=== PATIENT | female | born 1980 | race Caucasian/White ===

== ENCOUNTER 2018-08-25 06:29 | Inpatient (IN) ==
[2018-08-25] MEDS ORDERED: SODIUM CHLORIDE 0.9% 1,000 ML IV STA (06:46)
[2018-08-25] MEDS ORDERED: ONDANSETRON 4 MG/2 ML VIAL IV STA (06:46)
[2018-08-25 07:33] LABS: Basophils % 0.4 % (0.0-0.8); Eosinophils % 0.4 % (0.00-10.9); Hemoglobin 12.4 GM/DL (12.0-16.0); Immature Granulocytes % 0.5 %; Immature Granulocytes Absolute 0.04 #; Lymphocytes # 2.2 10*3/uL (1.4-4.0); Lymphocytes % 27.2 % (21.3-54.2); Mean Corpuscular HGB Conc 33.5 GM/DL (32-36); Mean Corpuscular Hemoglobin 35 PG (27-34); Mean Corpuscular Volume 105.4 FL (87-102); Mean Platelet Volume 9.8 FL (9.6-12.0); Monocytes # 0.6 10*3/uL (0.11-0.8); Monocytes % 7.3 % (1.7-12.7); NRBC # 0.02 10*3/uL; Neutrophils # 5.3 10*3/uL (1.4-7.4); Neutrophils % 64.2 % (38.7-73.9); Platelet Count 165 T/CUMM (130-400); Red Blood Count 3.51 MC/CUMM (3.8-5.5); Red Cell Distribution Width 15.6 % (9.3-17.3); White Blood Count 8.2 T/CUMM (4-12)
[2018-08-25 07:50] LABS: Apearance,Urine CLEAR (Clear); Bilirubin,Urine Negative (Negative); Blood, Urine Negative (Negative); Glucose,Urine (UA) Negative (Negative); Ketones,Urine Negative (Negative); Nitrite,Urine Negative (Negative); Protein,Urine Negative; Squamous Epithelial Cell,Urine Occasional /HPF (0-10); Urine Color Straw (Yellow); Urine Specific Gravity 1.002 (1.001-1.035); WBC,Urine <1 /HPF (0-6)
[2018-08-25 07:57] LABS: Alanine Aminotransferase 51 U/L (13-56); Alkaline Phosphatase 306 U/L (45-117); Aspartate Amino Transferase 151 U/L (0-37); Blood Urea Nitrogen 5 MG/DL (7-18); Calcium 9.2 MG/DL (8.5-10.1); Glucose 156 MG/DL (74-106); Osmolality,Calculated 272.8 MOS/KG (273-304); Potassium 2.7 MMOL/L (3.5-5.1); Sodium 137 MMOL/L (136-145); Total Protein 7.9 G/DL (6.4-8.3)
[2018-08-25] MEDS ORDERED: THIAMINE INJ 100 MG, FOLIC ACID INJ 1 MG, MAGNESIUM SULF INJ 2 GM, MULTIVITAMIN INJ 10 ... IV ONE (08:32)
[2018-08-25] MEDS ORDERED: HYDROmorphone 2 MG/1 ML VIAL IV STA (08:34)
[2018-08-25] MEDS ORDERED: HYDROmorphone 2 MG/1 ML VIAL ONE (08:35)
[2018-08-25] MEDS: SODIUM CHLOR 0.9% KCL 20 MEQ 20 MEQ/1,000 ML BAG IV SCH ×3 (09:32→22:53)
[2018-08-25] MEDS ORDERED: GLUCAGON 1 MG VIAL IM PRN (10:08)
[2018-08-25] MEDS ORDERED: DEXTROSE 50% 25 GM/50 ML VIAL IV PRN (10:08)
[2018-08-25] MEDS ORDERED: MAGNESIUM SULF RIDER 4 GM in PREMIX 1 EACH IV PRN (10:27)
[2018-08-25] MEDS ORDERED: PNEUMOCOCCAL VACCINE (23 VALENT) 0.5 ML VIAL IM ONE (10:56)
[2018-08-25] MEDS: NICOTINE 21 MG/24 HR PATCH TRANSDERM SCH (11:26)
[2018-08-25] MEDS ORDERED: HYDROmorphone 2 MG/1 ML VIAL IV ONE (11:54)
[2018-08-25] MEDS: INSULIN LISPRO 100 UNIT/ML SUBCUT SCH ×3 (12:48→21:20)
[2018-08-25] MEDS: PIPERACILLIN/TAZOBACTAM 3,375 MG in SODIUM CHLORIDE 0.9% 100 ML IV SCH ×2 (12:49→18:47)
[2018-08-25 13:10] LABS: INR 1.1; Partial Thromboplastin Time 27.3 SECS (0-40)
[2018-08-25] MEDS: ONDANSETRON 4 MG/2 ML VIAL IV PRN (14:46)
[2018-08-25] MEDS: HYDROmorphone 2 MG/1 ML VIAL IV PRN ×3 (17:59→23:43)
[2018-08-25] MEDS: MAGNESIUM SULF RIDER 2 GM in PREMIX 1 EACH IV PRN (23:13)
[2018-08-25 23:40] LABS: Hepatitis A Ab IgM Result Negative (Negative); Hepatitis B Core IgM Result Negative (Negative); Hepatitis B Surface Ag Result Negative (Negative); Hepatitis C Virus Ab Result Negative (Negative)
[2018-08-25 23:43] LABS: Hepatitis A Ab IgM Quant 0.06 Index; Hepatitis B Core IgM Quant < 0.05 Index; Hepatitis B Surface Ag Quant < 0.10 Index; Hepatitis C Virus Ab Quant 0.11 Index
[2018-08-26] MEDS: SODIUM CHLOR 0.9% KCL 20 MEQ 20 MEQ/1,000 ML BAG IV SCH ×4 (02:40→13:58)
[2018-08-26] MEDS: HYDROmorphone 2 MG/1 ML VIAL IV PRN ×6 (03:02→22:06)
[2018-08-26] MEDS: PIPERACILLIN/TAZOBACTAM 3,375 MG in SODIUM CHLORIDE 0.9% 100 ML IV SCH ×3 (03:08→18:25)
[2018-08-26 04:44] LABS: Basophils % 0.2 % (0.0-0.8); Eosinophils # 0.1 10*3/uL (0.0-0.87); Eosinophils % 0.8 % (0.00-10.9); Hematocrit 29.2 VOL% (35.7-47.0); Hemoglobin 9.6 GM/DL (12.0-16.0); Immature Granulocytes Absolute 0.09 #; Lymphocytes # 3.2 10*3/uL (1.4-4.0); Lymphocytes % 35.6 % (21.3-54.2); Mean Corpuscular HGB Conc 32.9 GM/DL (32-36); Mean Corpuscular Hemoglobin 36 PG (27-34); Mean Corpuscular Volume 109.8 FL (87-102); Monocytes # 0.9 10*3/uL (0.11-0.8); Monocytes % 9.7 % (1.7-12.7); NRBC # 0.03 10*3/uL; Neutrophils # 4.8 10*3/uL (1.4-7.4); Neutrophils % 52.7 % (38.7-73.9); Platelet Count 132 T/CUMM (130-400); Red Blood Count 2.66 MC/CUMM (3.8-5.5); White Blood Count 9.1 T/CUMM (4-12)
[2018-08-26 05:15] LABS: Albumin 2.2 G/DL (3.4-5.0); Bilirubin,Total 1.1 MG/DL (0.2-1.0); Calcium 7.1 MG/DL (8.5-10.1); Osmolality,Calculated 280.3 MOS/KG (273-304); Potassium 3.3 MMOL/L (3.5-5.1); Risk Ratio 14.75; Thyroid Stimulating Hormone 8.2 uIU/ml (0.358-3.74); Total Protein 5.8 G/DL (6.4-8.3)
[2018-08-26 05:16] LABS: Folate 2.5 NG/ML (5.4-24.0)
[2018-08-26] MEDS: INSULIN LISPRO 100 UNIT/ML SUBCUT SCH ×4 (07:34→22:01)
[2018-08-26] MEDS: PANTOPRAZOLE 40 MG TABLET PO SCH (08:20)
[2018-08-26] MEDS: FOLIC ACID 1 MG TABLET PO SCH (08:20)
[2018-08-26] MEDS: THIAMINE 100 MG TABLET PO SCH (08:20)
[2018-08-26] MEDS: MULTIVITAMIN (CENTRUM) TABLET PO SCH (08:20)
[2018-08-26] MEDS: NICOTINE 21 MG/24 HR PATCH TRANSDERM SCH (08:21)
[2018-08-26] MEDS: PREGABALIN 25 MG CAPSULE PO SCH ×2 (08:22→22:06)
[2018-08-26] MEDS ORDERED: INFLUENZA VIRUS VACCINE 0.5 ML SYRINGE IM ONE (09:00)
[2018-08-26] MEDS: ONDANSETRON 4 MG/2 ML VIAL IV PRN (13:52)
[2018-08-26] MEDS: DULoxetine 30 MG CAPSULE PO SCH (13:58)
[2018-08-27] MEDS: SODIUM CHLOR 0.9% KCL 20 MEQ 20 MEQ/1,000 ML BAG IV SCH ×2 (02:02→02:15)
[2018-08-27] MEDS: PIPERACILLIN/TAZOBACTAM 3,375 MG in SODIUM CHLORIDE 0.9% 100 ML IV SCH ×3 (02:17→18:48)
[2018-08-27 05:04] LABS: Basophils # 0.1 10*3/uL (0.0-0.2); Basophils % 0.6 % (0.0-0.8); Eosinophils # 0.1 10*3/uL (0.0-0.87); Eosinophils % 1.3 % (0.00-10.9); Hematocrit 33.7 VOL% (35.7-47.0); Hemoglobin 10.9 GM/DL (12.0-16.0); Immature Granulocytes % 1.3 %; Immature Granulocytes Absolute 0.11 #; Lymphocytes # 2.3 10*3/uL (1.4-4.0); Lymphocytes % 27.4 % (21.3-54.2); Mean Corpuscular HGB Conc 32.3 GM/DL (32-36); Mean Corpuscular Hemoglobin 36 PG (27-34); Mean Corpuscular Volume 112.3 FL (87-102); Mean Platelet Volume 10.3 FL (9.6-12.0); Monocytes % 11.5 % (1.7-12.7); NRBC # 0.04 10*3/uL; Neutrophils % 57.9 % (38.7-73.9); Platelet Count 138 T/CUMM (130-400); Red Cell Distribution Width 15.9 % (9.3-17.3); White Blood Count 8.5 T/CUMM (4-12)
[2018-08-27 05:28] LABS: Albumin 2.3 G/DL (3.4-5.0); Osmolality,Calculated 280.3 MOS/KG (273-304); Total Protein 6.4 G/DL (6.4-8.3)
[2018-08-27] MEDS ORDERED: MORPHINE 4 MG/1 ML VIAL IV ONE (07:43)
[2018-08-27] MEDS: HYDROmorphone 2 MG/1 ML VIAL IV PRN ×4 (08:40→20:44)
[2018-08-27] MEDS: INSULIN LISPRO 100 UNIT/ML SUBCUT SCH ×4 (08:49→20:52)
[2018-08-27] MEDS: NICOTINE 21 MG/24 HR PATCH TRANSDERM SCH (09:11)
[2018-08-27] MEDS: PREGABALIN 25 MG CAPSULE PO SCH ×2 (09:11→20:42)
[2018-08-27] MEDS: MULTIVITAMIN (CENTRUM) TABLET PO SCH (09:12)
[2018-08-27] MEDS: PANTOPRAZOLE 40 MG TABLET PO SCH (09:12)
[2018-08-27] MEDS: THIAMINE 100 MG TABLET PO SCH (09:12)
[2018-08-27] MEDS: FOLIC ACID 1 MG TABLET PO SCH (09:12)
[2018-08-27] MEDS ORDERED: KETOROLAC 30 MG/1 ML VIAL IV ONE (11:00)
[2018-08-27] MEDS: FUROSEMIDE 40 MG/4 ML VIAL IV SCH (16:51)
[2018-08-27] MEDS: SPIRONOLACTONE 50 MG TABLET PO SCH (16:51)
[2018-08-27] MEDS: DULoxetine 30 MG CAPSULE PO SCH (20:43)
[2018-08-27] MEDS ORDERED: traMADol 50 MG TABLET PO ONE (23:30)
[2018-08-28] MEDS: HYDROmorphone 2 MG/1 ML VIAL IV PRN ×3 (01:05→10:02)
[2018-08-28] MEDS: PIPERACILLIN/TAZOBACTAM 3,375 MG in SODIUM CHLORIDE 0.9% 100 ML IV SCH ×3 (03:52→18:37)
[2018-08-28] MEDS: LORazepam 2 MG/1 ML VIAL IV PRN ×3 (03:56→21:47)
[2018-08-28 06:14] LABS: Basophils % 0.5 % (0.0-0.8); Eosinophils # 0.1 10*3/uL (0.0-0.87); Eosinophils % 1.1 % (0.00-10.9); Hematocrit 28.3 VOL% (35.7-47.0); Hemoglobin 9.3 GM/DL (12.0-16.0); Immature Granulocytes % 1.1 %; Immature Granulocytes Absolute 0.08 #; Lymphocytes % 26.5 % (21.3-54.2); Mean Corpuscular HGB Conc 32.9 GM/DL (32-36); Mean Corpuscular Hemoglobin 36 PG (27-34); Mean Corpuscular Volume 110.1 FL (87-102); Mean Platelet Volume 10.6 FL (9.6-12.0); Monocytes # 0.9 10*3/uL (0.11-0.8); Monocytes % 11.4 % (1.7-12.7); NRBC # 0.03 10*3/uL; Neutrophils # 4.5 10*3/uL (1.4-7.4); Neutrophils % 59.4 % (38.7-73.9); Platelet Count 125 T/CUMM (130-400); Red Blood Count 2.57 MC/CUMM (3.8-5.5); Red Cell Distribution Width 15.9 % (9.3-17.3); White Blood Count 7.5 T/CUMM (4-12)
[2018-08-28 06:35] LABS: Platelet Estimate Adequate
[2018-08-28 06:36] LABS: Albumin 2.3 G/DL (3.4-5.0); Bilirubin,Total 1.2 MG/DL (0.2-1.0); Calcium 7.8 MG/DL (8.5-10.1); Osmolality,Calculated 286.3 MOS/KG (273-304); Polychromasia Slight; Potassium 3.5 MMOL/L (3.5-5.1); Total Protein 5.9 G/DL (6.4-8.3)
[2018-08-28 06:37] LABS: Anisocytosis 1+; Target Cells Few
[2018-08-28] MEDS: THIAMINE 100 MG TABLET PO SCH (08:47)
[2018-08-28] MEDS: SPIRONOLACTONE 50 MG TABLET PO SCH (08:47)
[2018-08-28] MEDS: MULTIVITAMIN (CENTRUM) TABLET PO SCH (08:47)
[2018-08-28] MEDS: PREGABALIN 25 MG CAPSULE PO SCH ×2 (08:48→20:58)
[2018-08-28] MEDS: NICOTINE 21 MG/24 HR PATCH TRANSDERM SCH (08:48)
[2018-08-28] MEDS: FOLIC ACID 1 MG TABLET PO SCH (08:48)
[2018-08-28] MEDS: PANTOPRAZOLE 40 MG TABLET PO SCH (08:48)
[2018-08-28] MEDS: INSULIN LISPRO 100 UNIT/ML SUBCUT SCH ×4 (08:49→20:57)
[2018-08-28] MEDS: FUROSEMIDE 40 MG/4 ML VIAL IV SCH ×2 (09:58→16:30)
[2018-08-28] MEDS ORDERED: HYDROmorphone 2 MG/1 ML VIAL IV PRN ×4 (10:26→18:30)
[2018-08-28] MEDS: DULoxetine 30 MG CAPSULE PO SCH (20:57)
[2018-08-29] MEDS: PIPERACILLIN/TAZOBACTAM 3,375 MG in SODIUM CHLORIDE 0.9% 100 ML IV SCH ×3 (03:31→18:00)
[2018-08-29] MEDS: LORazepam 2 MG/1 ML VIAL IV PRN (05:54)
[2018-08-29 06:05] LABS: Basophils % 0.2 % (0.0-0.8); Eosinophils # 0.1 10*3/uL (0.0-0.87); Hemoglobin 9.7 GM/DL (12.0-16.0); Immature Granulocytes % 0.9 %; Immature Granulocytes Absolute 0.08 #; Lymphocytes # 2.6 10*3/uL (1.4-4.0); Lymphocytes % 29.1 % (21.3-54.2); Mean Corpuscular HGB Conc 32.3 GM/DL (32-36); Mean Corpuscular Hemoglobin 36 PG (27-34); Mean Corpuscular Volume 109.9 FL (87-102); Mean Platelet Volume 10.8 FL (9.6-12.0); Monocytes # 0.8 10*3/uL (0.11-0.8); Neutrophils # 5.2 10*3/uL (1.4-7.4); Neutrophils % 59.8 % (38.7-73.9); Platelet Count 159 T/CUMM (130-400); Red Blood Count 2.73 MC/CUMM (3.8-5.5); Red Cell Distribution Width 16.3 % (9.3-17.3); White Blood Count 8.8 T/CUMM (4-12)
[2018-08-29 06:38] LABS: Albumin 2.3 G/DL (3.4-5.0); Bilirubin,Total 1.2 MG/DL (0.2-1.0); Calcium 8.1 MG/DL (8.5-10.1); Osmolality,Calculated 284.5 MOS/KG (273-304); Potassium 3.4 MMOL/L (3.5-5.1); Total Protein 6.1 G/DL (6.4-8.3)
[2018-08-29] MEDS ORDERED: IBUPROFEN 800 MG TABLET PO PRN (07:14)
[2018-08-29] MEDS: PREGABALIN 25 MG CAPSULE PO SCH ×2 (08:35→20:48)
[2018-08-29] MEDS: MULTIVITAMIN (CENTRUM) TABLET PO SCH (08:35)
[2018-08-29] MEDS: THIAMINE 100 MG TABLET PO SCH (08:35)
[2018-08-29] MEDS: PANTOPRAZOLE 40 MG TABLET PO SCH (08:35)
[2018-08-29] MEDS: FUROSEMIDE 40 MG/4 ML VIAL IV SCH (08:35)
[2018-08-29] MEDS: SPIRONOLACTONE 50 MG TABLET PO SCH (08:35)
[2018-08-29] MEDS: FOLIC ACID 1 MG TABLET PO SCH (08:36)
[2018-08-29] MEDS: INSULIN LISPRO 100 UNIT/ML SUBCUT SCH ×4 (08:36→21:48)
[2018-08-29] MEDS: MAGNESIUM SULF RIDER 2 GM in PREMIX 1 EACH IV PRN (08:36)
[2018-08-29] MEDS: NICOTINE 21 MG/24 HR PATCH TRANSDERM SCH ×2 (08:44→18:33)
[2018-08-29] MEDS: POTASSIUM CHLORIDE 20 MEQ TABLET PO PRN ×3 (08:44→17:28)
[2018-08-29] MEDS ORDERED: FUROSEMIDE 80 MG TABLET PO ONE (12:29)
[2018-08-29] MEDS ORDERED: traMADol 50 MG TABLET PO PRN (12:31)
[2018-08-29] MEDS: DULoxetine 30 MG CAPSULE PO SCH (20:47)
[2018-08-29] MEDS: traMADol 50 MG TABLET PO PRN (20:48)
[2018-08-30] MEDS: PIPERACILLIN/TAZOBACTAM 3,375 MG in SODIUM CHLORIDE 0.9% 100 ML IV SCH (03:55)
[2018-08-30 06:40] LABS: Basophils % 0.3 % (0.0-0.8); Eosinophils # 0.1 10*3/uL (0.0-0.87); Eosinophils % 1.4 % (0.00-10.9); Hematocrit 30.6 VOL% (35.7-47.0); Immature Granulocytes % 0.5 %; Immature Granulocytes Absolute 0.05 #; Lymphocytes # 2.6 10*3/uL (1.4-4.0); Lymphocytes % 27.5 % (21.3-54.2); Mean Corpuscular HGB Conc 32.7 GM/DL (32-36); Mean Corpuscular Hemoglobin 36 PG (27-34); Mean Corpuscular Volume 110.5 FL (87-102); Mean Platelet Volume 10.1 FL (9.6-12.0); Monocytes # 0.9 10*3/uL (0.11-0.8); Neutrophils # 5.9 10*3/uL (1.4-7.4); Neutrophils % 61.3 % (38.7-73.9); Platelet Count 216 T/CUMM (130-400); Red Blood Count 2.77 MC/CUMM (3.8-5.5); Red Cell Distribution Width 16.3 % (9.3-17.3); White Blood Count 9.6 T/CUMM (4-12)
[2018-08-30 06:56] LABS: Albumin 2.2 G/DL (3.4-5.0); Bilirubin,Total 0.7 MG/DL (0.2-1.0); Calcium 8.3 MG/DL (8.5-10.1); Osmolality,Calculated 282.4 MOS/KG (273-304); Potassium 4.2 MMOL/L (3.5-5.1); Total Protein 6.1 G/DL (6.4-8.3)
[2018-08-30 08:24] LABS: Hypochromasia 1+; Ovalocytes Slight; Platelet Estimate Adequate
[2018-08-30 08:51] VITALS: BP 115/81
[2018-08-30] MEDS ORDERED: FUROSEMIDE 40 MG TABLET PO SCH (09:00)
[2018-08-30 09:27] LABS: Neutrophils,Peritoneal Fluid 2 %; RBC,Peritoneal Fluid 46 T/CUMM
[2018-08-30] MEDS: traMADol 50 MG TABLET PO PRN (09:48)
[2018-08-30] MEDS: FOLIC ACID 1 MG TABLET PO SCH (09:48)
[2018-08-30] MEDS: PANTOPRAZOLE 40 MG TABLET PO SCH (09:48)
[2018-08-30] MEDS: INSULIN LISPRO 100 UNIT/ML SUBCUT SCH (09:50)
[2018-08-30] MEDS: THIAMINE 100 MG TABLET PO SCH (09:50)
[2018-08-30] MEDS: PREGABALIN 25 MG CAPSULE PO SCH (09:50)
[2018-08-30] MEDS: MULTIVITAMIN (CENTRUM) TABLET PO SCH (09:50)
[2018-08-30] MEDS: SPIRONOLACTONE 50 MG TABLET PO SCH (09:50)
[2018-08-30] MEDS: NICOTINE 21 MG/24 HR PATCH TRANSDERM SCH (09:51)
[2018-08-30] MEDS ORDERED: INFLUENZA VIRUS VACCINE 0.5 ML SYRINGE IM ONE (10:18)
== END 2018-08-30 10:50 | disposition home or self-care (01) | DRG 434 ==
LOC: EDBD → EDUNIT# → N.ED 06:29 → SUATTDRO 09:45 → N.EDINP 09:45 → N.2W 10:12 → N.2E 12:18
PROVIDERS: ADMIT Hospitalist; ATTEND Internal Medicine